=== PATIENT | male | born 2000 | race Caucasian/White ===

== ENCOUNTER 2022-08-30 17:06 | Emergency (ER) | payer BC ==
[2022-08-30] MEDS ORDERED: Sodium Chloride 0.9% 1,000 ML IV ONE (18:17)
[2022-08-30 19:01] LABS: CORONAVIRUS COVID-19 NAA POSITIVE (NEGATIVE); INFLUENZA A NAA NEGATIVE (NEGATIVE); INFLUENZA B NAA NEGATIVE (NEGATIVE); RESPIRATORY SYNCYTIAL VIR NAA NEGATIVE (NEGATIVE)
[2022-08-30 19:32] LABS: POTASSIUM,K 3.7 mmol/L (3.5-5.1)
== END 2022-08-30 19:47 | disposition home or self-care (01) ==
LOC: MW.ED 17:06
DX: U07.1 COVID-19 (principal)
CPT/HCPCS: 0241U; 36415; 71045; 80053; 85025; 96360; 99284; J7030; 99283

== ENCOUNTER 2023-03-28 10:38 | Emergency (ER) | payer BC | END 2023-03-28 11:45 | disposition home or self-care (01) | LOC: MW.ED 10:38 | DX: K61.1 Rectal abscess (principal); Z79.899 Other long term (current) drug therapy | CPT/HCPCS: 99281; 99282 ==